=== PATIENT | male | born 1945 | race Hispanic/Latino ===

== ENCOUNTER 2020-05-07 13:23 | Emergency (ER) | payer MEDICARE ==
[2020-05-07] MEDS ORDERED: DIPHtheria,PERTUSSIS(ACELL),TETANUS VACCINE/PF 0.5 ML VIAL IM ONE (13:38)
[2020-05-07] MEDS ORDERED: ONDANSETRON 4 MG/2 ML INJ IV ONE (13:38)
[2020-05-07] MEDS ORDERED: MORPHINE 4 MG/1 ML INJ IV ONE (13:38)
[2020-05-07] MEDS ORDERED: LIDOCAINE 2%/EPINEPHRINE 1:200,000 VIAL (20 ML) INFILTRATI ONE ×2 (13:39→13:42)
[2020-05-07] MEDS ORDERED: SODIUM CHLORIDE IRRI 500 ML 500 ML IR ONE (13:44)
--- NOTE | 2020-05-07 14:00 | Emergency Department Report ---
ED Head Trauma HPI - General Stated complaint: HEAD LAC Time Seen by Provider: 05/07/20 13:32 Source: patient Mode of arrival: Carried (Peds) Limitations: Other (Hard of hearing) - History of Present Illness Initial comments: 75-year-old male who is hard of hearing with a past medical history of CAD stents x4 , diabetes, chronic anticoagulation, seizures, tremor, htn presents to the hospital with injury to right side of head and face after a tree limb fell on his head. Pt was cutting the tree limb when it struck him. No LOC reported. Patient complains of mild right-sided headache with some increased with palpation and right periorbital pain. No other injury or pain reported. Patient is currently on anticoagulationn for "multiple stents in his heart." Tetanus is not up-to-date. - Related Data Previous Rx's Medication Instructions Recorded Last Taken Type HYDROcodone/APAP 5-325 [[place] 1 each PO Q6HR PRN #14 tablet 05/07/20 Unknown Rx 5/325] Allergies/Adverse reactions: Allergies Allergy/AdvReac Type Severity Reaction Status Date / Time cephalexin [From Keflex] Allergy Unknown Verified 05/07/20 14:07 ED Review of Systems ROS: Stated complaint: HEAD LAC Other details as noted in HPI Comment: All other systems reviewed and negative ED Past Medical Hx - Past Medical History Hx Hypertension: Yes Hx Diabetes: Yes Hx Seizures: Yes Additional medical history: Tremors, CAD - Surgical History Hx Coronary Stent: Yes (x 4) - Medications Home Medications: Home Medications Medication Instructions Recorded Confirmed Last Taken Type HYDROcodone/APAP 5-325 [[place] 1 each PO Q6HR PRN #14 tablet 05/07/20 Unknown Rx 5/325] ED Physical Exam - Other Other exam information: General: No acute distress Head: 3 cm semi-port graham right brow laceration with underlying hematoma Eyes: Significant right periorbital swelling with ecchymosis. Right cheek and infraorbital skin abrasion. Positive periorbital tenderness to palpation Small right eye lateral subconjunctival hemorrhage without chemosis, blurry vision, or photophobia. Extraocular movements intact. Pupils equal reactive to light ENT: Moist mucous membranes Neck: Normal appearance, no midline tenderness Chest: Clear to auscultation bilaterally CV: Regular rate and rhythm Abdomen: Soft, normal bowel sounds, nontender, nondistended, no rebound or guarding Back: Normal inspection Extremity: Normal inspection, full range of motion Neuro: Alert O x 3, no facial asymmetry, speech clear, no gross motor sensory deficit Psych: Appropriate behavior Skin: No rash ED Course Vital Signs 05/07/20 13:59 Temperature 98.0 F Pulse Rate 74 Respiratory 18 Rate Blood Pressure 140/76 O2 Sat by Pulse 96 Oximetry - Radiology Data Radiology results: report reviewed Examination: CT of the head without contrast Clinical information: Trauma. Comparison: None Technical: Multiple axial CT images of the head were obtained without intravenous contrast. Sagittal and coronal reformats were obtained. All CTs at this facility utilize dose reduction techniques including automated exposure control, iterative reconstruction and weight based dosing when appropriate to reduce patient radiation dose to as low as reasonable achievable. Findings: There is no CT evidence of acute intracranial hemorrhage or large territorial infarct. Mild to moderate cerebral atrophy is noted with concomitant mild dilatation of the ventricular system. No abnormal extra-axial fluid collection is identified. Evaluation of the calvarium demonstrates no evidence of acute bony abnormality. The visualized paranasal sinuses and mastoid air cells are clear. Soft tissue injury to the right frontal scalp is noted. Impression: 1. No CT evidence of acute intracranial process. 2. Mild to moderate generalized atrophy. CT MAXILLOFACIAL WITHOUT CONTRAST INDICATION / CLINICAL INFORMATION: Head injury status post fall. TECHNIQUE: All CT scans at this location are performed using CT dose reduction for ALARA by means of automated exposure control. COMPARISON: None available. FINDINGS: FACIAL BONES: No fracture or other significant abnormality. PARANASAL SINUSES: No significant abnormality. Incidental ossified osteoma left frontal sinus extending into the left anterior ethmoid air cells ORBITS: Moderate sized right periorbital soft tissue hematoma with associated laceration. VISUALIZED INTRACRANIAL STRUCTURES: No significant abnormality. ADDITIONAL FINDINGS: None. IMPRESSION: 1. Moderate right periorbital hematoma with laceration right frontal scalp. 2. No facial fracture CT CERVICAL SPINE WITHOUT CONTRAST INDICATION: Fall from tree, head injury. TECHNIQUE: All CT scans at this location are performed using CT dose reduction for ALARA by means of automated exposure control. Axial CT images were obtained through the cervical spine. Sagittal and coronal reformatted images were produced. COMPARISON: None available. FINDINGS: Fracture: None. Subluxation: None. Spinal canal: No significant compromise. Disc spaces: Discogenic degenerative disease C3-4 and C6-7. Facet joints: Normal. Paraspinal soft tissues: No soft tissue swelling. Normal. Additional findings: Mature anterior cervical disc fusion with anterior plate, screws and mature bone plugs extends from C4-6. Lung apices: Normal. IMPRESSION: 1. Mature ACDF C4-6. 2. No cervical fracture - Medical Decision Making Patient sustained an injury to the right side of face when a tree limb he was cutting fell on his head. Patient is on anticoagulation and had bleeding and ecchymosis. CT head, cervical spine, and facial bones did not show acute findings. Patient denies eye symptoms other than periorbital pain. Laceration repaired with sutures. Antibiotic ointment applied to suture and abrasion. Wound dressing applied to the laceration area since minimal oozing persists likely secondary to anticoagulation. Patient's pain improved with morphine and Zofran in the ED patient. Patient will be placed on pain medicine to take at home Critical Care Time: No Critical care attestation.: If time is entered above; I have spent that time in minutes in the direct care of this critically ill patient, excluding procedure time. ED Disposition Clinical Impression: Head injury due to trauma, Laceration of eyebrow, right, Periorbital ecchymosis of right eye, Abrasion of face Disposition: DC-01 TO HOME OR SELFCARE Is pt being admited?: No Does the pt Need Aspirin: No Condition: Stable Instructions: Minor Head Injury (ED), Suture Care (ED), Abrasion (ED), Black Eye (ED) Additional Instructions: Take the medication as prescribed. Follow-up with your doctor or doctor/clinic provided. Return if symptoms worsen as indicated by your discharge inst ructions. Your stitches should be removed in 5 days. You may return here or follow up with your doctor for stitches removal. Prescriptions: HYDROcodone/APAP 5-325 [[place] 5/325] 1 each PO Q6HR PRN #14 tablet PRN Reason: Pain Referrals: ZEKE MALONE [Other] - 3-5 Days Time of Disposition: 15:28
[2020-05-07 14:05] VITALS: BP 140/76
--- NOTE | 2020-05-07 14:07 | Cat Scan Report ---
Examination: CT of the head without contrast Clinical information: Trauma. Comparison: None Technical: Multiple axial CT images of the head were obtained without intravenous contrast. Sagittal and coronal reformats were obtained. All CTs at this facility utilize dose reduction techniques inc luding automated exposure control, iterative reconstruction and weight based dosing when appropriate to reduce patient radiation dose to as low as reasonable achievable. Findings: There is no CT evidence of acute intracranial hemorrhage or large territorial infarct. Mild to moderate cerebral atrophy is noted with concomitant mild dilatation of the ventricular system. No abnormal extra-axial fluid collection is identified. Evaluation of the calvarium demonstrates no evidence of acute bony abnormality. The visualized parana stephanie sinuses and mastoid air cells are clear. Soft tissue injury to the right frontal scalp is noted. Impression: 1. No CT evidence of acute intracranial process. 2. Mild to moderate generalized atrophy. Signer Name: Kelsey Maurice MD Signed: 05/07/2020 2:03 PM Workstation Name: [id number]
--- NOTE | 2020-05-07 14:26 | Cat Scan Report ---
CT CERVICAL SPINE WITHOUT CONTRAST INDICATION: Fall from tree, head injury. TECHNIQUE: All CT scans at this location are performed using CT dose reduction for ALARA by means of automated e xposure control. Axial CT images were obtained through the cervical spine. Sagittal and coronal reformatted images we re produced. COMPARISON: None available. FINDINGS: Fracture: None. Subluxation: None. Spinal canal: No significant compromise. Disc spaces: Discogenic degenerative disease C3-4 and C6-7. Facet joints: Normal. Paraspinal soft tissues: No soft tissue swelling. Normal. Additional findings: Mature anterior cervical disc fusion with anterior plate, screws and mature bone plugs extends from C4-6. Lung apices: Normal. IMPRESSION: 1. Mature ACDF C4-6. 2. No cervical fracture Signer Name: Lance Nelson MD Signed: 05/07/2020 2:21 PM Workstation Name: [id number]
--- NOTE | 2020-05-07 14:30 | Cat Scan Report ---
CT MAXILLOFACIAL WITHOUT CONTRAST INDICATION / CLINICAL INFORMATION: Head injury status post fall. TECHNIQUE: All CT scans at this location are performed using CT dose reduction for ALARA by means of automated e xposure control. COMPARISON: None available. FINDINGS: FACIAL BONES: No fracture or other significant abnormality. PARANASAL SINUSES: No significant abnormality. Incidental ossified osteoma left frontal sinus extendi ng into the left anterior ethmoid air cells ORBITS: Moderate sized right periorbital soft tissue hematoma with associated laceration. VISUALIZED INTRACRANIAL STRUCTURES: No significant abnormality. ADDITIONAL FINDINGS: None. IMPRESSION: 1. Moderate right periorbital hematoma with laceration right frontal scalp. 2. No facial fracture Signer Name: Lance Nelson MD Signed: 05/07/2020 2:26 PM Workstation Name: [id number]
[2020-05-07] MEDS ORDERED: NEOMY 3.5 MG/BACIT 400 UNITS/POLY B 5000 UNITS/GM OINT PACKET TP ONE (15:16)
[2020-05-07] MEDS ORDERED: BACITRACIN ZINC OINT 28.4 GM TP ONE (15:18)
== END 2020-05-07 16:15 | disposition home or self-care (01) ==
LOC: ED 13:23
DX: S01.111A Laceration without foreign body of right eyelid and periocular area, initial encounter (principal); S05.11XA Contusion of eyeball and orbital tissues, right eye, initial encounter; S09.90XA Unspecified injury of head, initial encounter; I10 Essential (primary) hypertension; E11.9 Type 2 diabetes mellitus without complications; R56.9 Unspecified convulsions; Z98.890 Other specified postprocedural states; Z79.899 Other long term (current) drug therapy; Z88.8 Allergy status to other drugs, medicaments and biological substances; W20.8XXA Other cause of strike by thrown, projected or falling object, initial encounter; Y93.89 Activity, other specified; Y92.89 Other specified places as the place of occurrence of the external cause; Y99.8 Other external cause status
CPT/HCPCS: 70450; 70486; 72125; 90471; 90715; 96374; 96375; 99284; A6250; J2270; J2405